=== PATIENT | female | born 1980 | race Caucasian/White ===

== ENCOUNTER 2017-03-27 17:21 | Emergency (ER) | payer OTHER ==
[~2017-03-27] VITALS: Ht 170.2 cm; Wt 99.8 kg
[~2017-03-27 17:21] MED LIST: ANOTHER B/P MED; HYDR-2762 PO; LOSA25TA4 PO; OXYC20TA34 PO; PRED50TA PO
[2017-03-27 18:00] VITALS: BP 122/81
[2017-03-27] MEDS ORDERED: ALBU18HF IH (19:51)
[2017-03-27] MEDS ORDERED: METH4TAB2 PO (19:51)
[2017-03-27] MEDS ORDERED: AZIT250T6 PO (19:51)
--- NOTE | 2017-03-27 19:51 | PHYS DOC ---
Past History Past Medical History: Hypertension Past Surgical History: Cholecystectomy, Alcohol Use: None Drug Use: None Adult General Chief Complaint Chief Complaint: COUGH HPI HPI Patient is a 36 year old female who presents with complaint of cough for 1 week. Patient states that she has had worsening cough productive of yellowish sputum over the past few days. Patient also states that she has had tightness with inspiration throughout her chest but denies substernal pain. The patient has taken [id number]-hyqbcaf medication with no relief in symptoms. Patient states that she's had subjective fevers at home but has not measured her temperature. Patient denies any nausea, vomiting, chest pain, or abdominal pain. Review of Systems Review of Systems Constitutional: Subjective fever[] Eyes: Denies change in visual acuity, redness, or eye pain [] HENT: Denies nasal congestion or sore throat [] Respiratory: Cough, shortness of breath with exertion[] Cardiovascular: Denies chest pain or edema[] GI: Denies abdominal pain, nausea, vomiting, bloody stools or diarrhea [] : Denies dysuria or hematuria [] Musculoskeletal: Denies back pain or joint pain [] Integument: Denies rash or skin lesions [] Neurologic: Denies headache, focal weakness or sensory changes [] Allergies Allergies Allergies Coded Allergies Type Severity Reaction Last Updated Verified No Known Drug Allergies 10/21/14 No Physical Exam Physical Exam Constitutional: Alert, afebrile, vital signs stable, no acute distress. [] HENT: Normocephalic, atraumatic, bilateral external ears normal, oropharynx moist, no oral exudates, nose normal. [] Eyes: PERRLA, EOMI, conjunctiva normal, no discharge. [] Neck: Normal range of motion, no tenderness, supple, no stridor. [] Cardiovascular:Heart rate regular rhythm, no murmur [] Lungs & Thorax: Mild resection of air movement bilaterally, no wheezes, no rales [] Abdomen: Bowel sounds normal, soft, no tenderness, no masses, no pulsatile masses. [] Skin: Warm, dry, no erythema, no rash. [] Back: No tenderness, no CVA tenderness. [] Extremities: No tenderness, no cyanosis, no clubbing, ROM intact, no edema. [] Neurologic: Alert and oriented X 3, normal motor function, normal sensory function, no focal deficits noted. [] Current Patient Data Vital Signs Vital Signs Date Time Temp Pulse Resp B/P (MAP) Pulse Ox O2 Delivery O2 Flow Rate FiO2 03/27/17 18:00 99.4 95 18 97 Room Air Lab Results Not performed EKG EKG Not performed[] Radiology/Procedures Radiology/Procedures Not performed[] Course & Med Decision Making Course & Med Decision Making Pertinent Labs and Imaging studies reviewed. (See chart for details) Patient has persistent cough over one week. Possibility of atypical pneumonia remains in differential diagnosis. The patient otherwise appears stable. The patient's tightness throughout the chest is likely reactive due to inflammation. This will be addressed with prescriptions for albuterol and Medrol Dosepak. Will also prescribe azithromycin Z-Real for treatment of possible atypical pneumonia. Advise follow-up in 2-3 days a primary doctor and return to emergency department for any worsening symptoms. Patient voiced understanding and in agreement with treatment plan. Dragon Disclaimer Dragon Disclaimer This chart was dictated in whole or in part using Voice Recognition software in a busy, high-work load, and often noisy Emergency Department environment. It may contain unintended and wholly unrecognized errors or omissions. Departure Departure: Impression: Primary Impression: Cough Disposition: 01 HOME, SELF-CARE Condition: STABLE Referrals: JARROD OLVERA APRN (PCP) Patient Instructions: Cough, Adult Additional Instructions: Follow-up with your primary doctor in 2-3 days for reevaluation. Return to the emergency department for any worsening symptoms. Scripts Azithromycin (AZITHROMYCIN TABLET) 250 Mg Tablet 1 PKG PO UD, #6 TAB Prov: JULIANNA HELMS MD 03/27/17 Methylprednisolone (MEDROL) 4 Mg Tab.ds.pk 1 PKG PO UD, #1 PKG Prov: JULIANNA HELMS MD 03/27/17 Albuterol Sulfate (VENTOLIN HFA INHALER) 18 Gm Hfa.aer.ad 1-2 PUFF IH PRN Q4HRS Y for WHEEZING, #1 INHALER 0 Refills Prov: JULIANNA HELMS MD 03/27/17 JULIANNA HELMS MD Mar 27, 2017 19:51
== END 2017-03-27 20:24 | disposition home or self-care (01) ==
LOC: ER 17:21
DX: R05 Cough (principal); R50.9 Fever, unspecified; R06.02 Shortness of breath; I10 Essential (primary) hypertension
CPT/HCPCS: 99283